=== PATIENT | male | born 1935 | race Caucasian/White ===

== ENCOUNTER 2023-03-18 20:24 | Emergency (ER) | payer OTHER ==
[~2023-03-18] VITALS: Ht 182.9 cm; Wt 90.0 kg
[2023-03-18 20:37] VITALS: O2SAT 96
[2023-03-19 00:20] LABS: BASOPHILS % 0.3 % (0.0-2.0); EOSINOPHILS % 1.8 % (0.0-5.0); HEMATOCRIT. 31.6 % (42.0-52.0); HEMOGLOBIN. 10.9 g/dL (14.0-18.0); LYMPHOCYTES % 12.4 % (20.0-50.0); MEAN CORPUSCULAR HEMOGLOBIN 30.2 pg (28.0-32.0); MEAN CORPUSCULAR VOLUME 87.3 fL (80.0-94.0); MEAN PLATELET VOLUME 7.2 fl (7.4-10.4); MONOCYTES % 9.5 % (2.0-8.0); PLATELET 357 x1000/uL (130-400); RED BLOOD CELL COUNT 3.62 mill/uL (4.7-6.1); RED CELL DISTRIBUTION WIDTH 15.5 % (11.6-14.6)
[2023-03-19 00:29] LABS: CHLORIDE 98 mEq/L (98-107)
[2023-03-19 09:15] VITALS: BP 149/73; PULSE 73; RESP 16; TEMP 98
== END 2023-03-19 09:17 | disposition short-term general hospital (02) ==
LOC: ER 20:24
DX: I82.493 Acute embolism and thrombosis of other specified deep vein of lower extremity, bilateral (principal); R53.1 Weakness; E11.9 Type 2 diabetes mellitus without complications; I10 Essential (primary) hypertension
CPT/HCPCS: 36415; 71045; 72170; 80053; 83605; 83880; 84484; 85025; 93005; 93970; 99285